=== PATIENT | male | born 2005 | race Two or more races ===

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

== ENCOUNTER 2025-01-09 15:08 | Outpatient (AMB) | payer MEDICAID, SELFPAY ==
[2025-01-09 15:36] VITALS: BP 153/82; PULSE 69; RESP 17; TEMP 36.8; O2SAT 98; BMI 20.1
--- NOTE | 2025-01-09 15:36 | PD.RESCLINIC ---
Vital Signs 01/09/25 15:36 Height 1.85 m Height Method Measured Weight 68.946 kg Weight Measurement Method Standing Scale BMI 20.1 BP 153/82 H Blood Pressure Source Automatic Cuff Blood Pressure Location Right Upper Arm Position Sitting Respiration 17 Pulse 69 Pulse Source Monitor Temp 98.3 F Temp Source Temporal Artery Scan Pulse Oximetry (%) 98 Oxygen Delivery Method Room Air Allergies/Meds Allergies & Medications Allergies No Known Allergies Allergy (Verified 01/09/25 15:37) Medication Reconciliation metoclopramide HCl 10 mg tablet (Reglan) 10 mg PO Q6H PRN nausea and vomiting #30 tabs 09/02/24 [Rx Confirmed 01/09/25] famotidine 20 mg tablet (Pepcid) 20 mg PO QDAY PRN reflux #14 tabs 11/08/24 [Rx Confirmed 01/09/25] propranolol 10 mg tablet 10 mg PO BID #60 tabs 11/08/24 [Rx Confirmed 01/09/25] tamsulosin 0.4 mg capsule (Flomax) 0.4 mg PO QDAY #10 caps 11/08/24 [Rx Confirmed 01/09/25] escitalopram oxalate 20 mg tablet (Lexapro) 20 mg PO QDAY #30 tabs 11/25/24 [Rx Confirmed 01/09/25] alprazolam 1 mg tablet 1 mg PO TID PRN anxiety 1 week #21 tabs 01/09/25 [Rx Confirmed 01/09/25] MA Intake Visit Data Collection New Patient or Established: Established Patient (seen at [facility] within 3 years) Seen by Clinical Staff ONLY (RN/MA): No Pain Present Currently: No Pain scale:: 0 Pain Scale Used: Peguero-Medellin/Numerical Billing Collections Specialist Required: No PCP or OBGYN visit in last 3 months: Yes Date of Last PCP or OBGYN visit: 12/19/24 Hx Now: No Do You Feel Safe at Home: Yes Authorities Contacted: N/A Smoking Status Smoking Status: Never smoker Immunization / Flu Flu Vaccine in the Last 12 Months: No Flu Vaccine Exclusion Criteria: No Exclusion Criteria Past Medical History Past Medical History CARDIAC: Negative Congestive Heart Failure RESPIRATORY: Negative Chronic Obstructive Pulmonary Disease (COPD) GENITOURINARY: Negative Renal Disease ENDOCRINE: Negative Diabetes Mellitus Type 1 or Diabetes Mellitus Type 2 PSYCHO/SOCIAL: Positive Recreational Drug Use and Anxiety Social History SMOKING STATUS: Smoking status: Never smoker ALCOHOL: Alcohol Intake: Never Patient Portal Questionaires PHQ-9 PHQ-2 Over the last 2 weeks, how often have you been bothered by any of the following problems? 1. Little interest or pleasure in doing things: not at all PHQ-9 8. Moving or speaking so slowly that other people could have noticed? - Or the opposite - being so fidgety or restless that you have been moving around a lot more than usual: nearly every day Source: Developed by Drs. Guzman Blankenship, Rebekah Bueno, Tyrone Tracy and colleagues, with an educational blanche from [employer]. Social History Living Situation History Lives With: Family Tobacco History Smoking Status: Never smoker Alcohol History Alcohol Intake: Never Domestic Abuse History Do You Feel Safe at Home: Yes Review of Systems Report any current symptoms Only answer those that you have currently: Past Medical History Past Medical History Have you ever been diagnosed with any of the following: Cardiology Problems Congestive Heart Failure: No Respiratory Problems Chronic Obstructive Pulmonary Disease (COPD): No Genital/Urinary Problems Renal Disease: No Endocrine Problems Diabetes Mellitus Type 1: No Diabetes Mellitus Type 2: No Psychologic Problems Recreational Drug Use: Yes Anxiety: Yes History of Present Illness HPI Narrative Alfred Bustamante is a 19-year-old male with a past medical history of generalized anxiety disorder, panic attacks, and history of substance use (cocaine, alcohol, THC, benzodiazepines) who presents to the [facility] for medication refill. He reports he was off Xanax for several day and feels withdrawal. He reports palpitations, tachycardia, diaphoresis, anxiety. He was recently [place] and was getting his Xan[place] there. He reports he is trying to reduce the dose but it is very hard for him. He was referred to psychiatry before and was encouraged to follow up on that. He denies any other substances use or selling his Xanax to other people. He previously reported he was bying it on streets but now is having financial difficulties and cannot afford it. Review of Systems Review of Systems Systems Reviewed: All systems reviewed, normal except as documented Objective/Exam Narrative Physical exam: Gen: Well-developed and well-nourished. HEENT: NCAT, PERRLA, EOMI, MMM, anicteric conjunctivae. CVS: normal S1 and S2. RRR. No M/R/G. Resp: CTA B/L. No rhonchi, rales, crackles or wheezing. Abd: soft, non-tender, non-distended. BS+ in all 4 quadrants. MSK: Good ROM in BUE & BLE. No edema or rash. Neuro: CN II-XII grossly intact. Strength 5/5 in BUE & BLE. Alert and oriented x3. Psych: appropriate mood and affect. Assessment & Plan Diagnosis / Problem List (1) Generalized anxiety disorder: Status: Acute Assessment & Plan: Patient has had improved symptoms with Lexapro, recently increased to 20 mg daily, however still gets panniock attacks and severe withdrawals from Xanax. Recently ran out of Xanax several days ago and requesting refill. Was referred to psychiatry and was encouraged to follow up. Plan: ? Continue Lexapro 20 mg daily. ? Xanax 1 mg TID as needed for 1 week. ? Encouraged patient to wean down to 2.5 mg of total daily dose (1 mg twice daily, 0.5 mg once daily). ? Can time 0.5 mg dosage for when patient feels the least anxious (morning, noon, vs evening). ? Encouraged to follow up with psychiatry referral. ? Follow-up in two weeks. (2) Substance abuse: Status: Acute Assessment & Plan: Concern for addiction to Xanax, patient showing signs of withdrawal. Plan: ? Counseled patient on Xanax use, explained risks of dependence and side effects, patient aware, attempting to reduce dose. ? Encouraged patient to work on reducing use of Xanax. ? Encouraged to follow up with psychiatry referral. Additional Assessment Internal Medicine Attending Note: Case discussed with and agree with note and management plan of Resident Physician as per Resident's Note above. Issues of concern for present visit are as follows: Follow-up visit. Patient still getting panic attacks, severe anxiety. Ran out of Xanax several days previously. Concern for withdrawal. We will resume the patient on Xanax at 1 mg 3 times daily and work to slowly wean this. Needs to follow-up with psychiatry. Continue Lexapro. Of note, since the patient's last visit, he was briefly incarcerated, but apparently charges have been dropped. Sumanth Stiles MD Additional Plan Plan of care discussed with attending Dr. Stiles. Barry Gottlieb MD, PGY 2. Disclaimer: This note was dictated by speech recognition. Minor errors in scrap wheeler may be present due to voice recognition software. Physician Billing Established Patient Established Patient: E/M Level 3-CPT 73598 Office Procedures [facility] Level of Care Nursing/Assessment Patient Status: Established Patient Nursing Assessment/Reassessment: Medication Reconciliation, Update PMH in EMR and Vital Signs Coordination of Care: Complex Care and Chronic Disease 1-5, Education Complex Pt/Fam and Consent,records obtained, informed consent Established Patient Charge Established Patient Point Assignment: 80 Established Patient Point Charge: Level 3 (80-115)
== END 2025-01-09 16:07 | disposition home or self-care (01) ==
LOC: HODAHC 15:08
PROVIDERS: Supervising Provider Internal Medicine; Visit Provider Student in an Organized Health Care Education/Training Program
DX: F41.1 Generalized anxiety disorder (principal); F13.139 Sedative, hypnotic or anxiolytic abuse with withdrawal, unspecified
CPT/HCPCS: 99213; G0463

== ENCOUNTER 2025-01-20 13:06 | Outpatient (AMB) | payer MEDICAID, SELFPAY ==
--- NOTE | 2025-01-20 14:14 | PD.RESCLINIC ---
Allergies/Meds Allergies & Medications Allergies No Known Allergies Allergy (Verified 01/09/25 15:37) MA Intake Visit Data Collection PCP or OBGYN visit in last 3 months: Yes Smoking Status Smoking Status: Never smoker Immunization / Flu Flu Vaccine in the Last 12 Months: Yes Flu Vaccine Exclusion Criteria: No Exclusion Criteria Past Medical History Past Medical History CARDIAC: Negative Congestive Heart Failure RESPIRATORY: Negative Chronic Obstructive Pulmonary Disease (COPD) GENITOURINARY: Negative Renal Disease ENDOCRINE: Negative Diabetes Mellitus Type 1 or Diabetes Mellitus Type 2 PSYCHO/SOCIAL: Positive Recreational Drug Use and Anxiety Social History SMOKING STATUS: Smoking status: Never smoker ALCOHOL: Alcohol Intake: Never Patient Portal Questionaires PHQ-9 PHQ-2 Over the last 2 weeks, how often have you been bothered by any of the following problems? 1. Little interest or pleasure in doing things: not at all PHQ-9 8. Moving or speaking so slowly that other people could have noticed? - Or the opposite - being so fidgety or restless that you have been moving around a lot more than usual: nearly every day Source: Developed by Drs. Guzman Blankenship, Rebekah Bueno, Tyrone Tracy and colleagues, with an educational blanche from [facility]. Social History Living Situation History Lives With: Family Tobacco History Smoking Status: Never smoker Alcohol History Alcohol Intake: Never Review of Systems Report any current symptoms Only answer those that you have currently: Past Medical History Past Medical History Have you ever been diagnosed with any of the following: Cardiology Problems Congestive Heart Failure: No Respiratory Problems Chronic Obstructive Pulmonary Disease (COPD): No Genital/Urinary Problems Renal Disease: No Endocrine Problems Diabetes Mellitus Type 1: No Diabetes Mellitus Type 2: No Psychologic Problems Recreational Drug Use: Yes Anxiety: Yes History of Present Illness HPI Narrative Alfred Bustamante is a 19-year-old male with a past medical history of generalized anxiety disorder, panic attacks, and history of substance use (cocaine, alcohol, THC, benzodiazepines) who presents to the [facility] for medication refill. He reports he was off Xanax for several day because he was given refill for only 1 week and he could not present on 16 of January for follow up appointment. He reported that he feels like getting withdrawal. He reports palpitations, tachycardia, diaphoresis, anxiety and tremors. He reported having tele psychiatrist visit about 6 months ago and was told that he no longer needs to see them. He was recommended to call his insurance for in person psychiatrist visit. Review of Systems Review of Systems Systems Reviewed: All systems reviewed, normal except as documented Objective/Exam Narrative Physical exam: Gen: Well-developed and well-nourished. HEENT: NCAT, PERRLA, EOMI, MMM, anicteric conjunctivae. CVS: normal S1 and S2. RRR. No M/R/G. Resp: CTA B/L. No rhonchi, rales, crackles or wheezing. Abd: soft, non-tender, non-distended. BS+ in all 4 quadrants. MSK: Good ROM in BUE & BLE. No edema or rash, mild tremors on UE. Neuro: CN II-XII grossly intact. Strength 5/5 in BUE & BLE. Alert and oriented x3. Psych: Mildly anxious. Assessment & Plan Diagnosis / Problem List (1) Generalized anxiety disorder: Status: Acute Assessment & Plan: Patient has had improved symptoms with Lexapro, currently on 20mg daily, however still gets panic attacks and severe withdrawals from Xanax. Recently ran out of Xanax several days ago and requesting refill. Was referred to psychiatry and was encouraged to follow up, by calling to insurance provider. Plan: ? Continue Lexapro 20 mg daily. ? Xanax 1 mg TID as needed for 2 week. ? Encouraged patient to wean down to 2.5 mg of total daily dose (1 mg twice daily, 0.5 mg once daily). ? Can time 0.5 mg dosage for when patient feels the least anxious (morning, noon, vs evening). ? Encouraged to follow up with psychiatry referral, and call the insurance and request in person visit. ? Follow-up in two weeks. (2) Substance abuse: Status: Acute Assessment & Plan: Concern for addiction to Xanax, patient showing signs of withdrawal, with agitation and UE tremors. Plan: ? Counseled patient on Xanax use, explained risks of dependence and side effects, patient aware, attempting to reduce dose, has gone down to 1 mg TID PRN from total of 4 mg daily. ? Encouraged patient to work on reducing use of Xanax. ? Encouraged to follow up with psychiatry referral. - Encouraged to involve more with family and friends who really cares for him The case was discussed with my attending MD Arsalan Robles MD PGY3 Additional Assessment Attending note: I, Sumanth Stiles MD, attest that I was physically present for the sims portions of the service and evaluated the patient with the resident and I reviewed and discussed the case with the resident and agree with the resident's findings and plans of care as documented above. Sumanth Stiles MD Physician Billing Established Patient Established Patient: E/M Level 3-CPT 08712
== END 2025-01-20 14:38 | disposition home or self-care (01) ==
LOC: HODAHC 13:06
PROVIDERS: Supervising Provider Internal Medicine; Visit Provider Student in an Organized Health Care Education/Training Program
DX: F41.1 Generalized anxiety disorder (principal); F13.10 Sedative, hypnotic or anxiolytic abuse, uncomplicated
CPT/HCPCS: 99213; G0463

== ENCOUNTER 2025-02-05 15:37 | Outpatient (AMB) | payer MEDICAID, SELFPAY ==
[2025-02-05 15:51] VITALS: BP 148/96; PULSE 69; RESP 18; TEMP 36.8; O2SAT 98; BMI 21.7
--- NOTE | 2025-02-05 15:51 | PD.RESCLINIC ---
Vital Signs 02/05/25 15:51 Height 1.85 m Height Method Stated Weight 74.559 kg Weight Measurement Method Standing Scale BMI 21.7 BP 148/96 H Blood Pressure Source Automatic Cuff Blood Pressure Location Right Upper Arm Position Sitting Respiration 18 Pulse 69 Pulse Source Monitor Temp 98.2 F Temp Source Temporal Artery Scan Pulse Oximetry (%) 98 Oxygen Delivery Method Room Air Allergies/Meds Allergies & Medications Allergies No Known Allergies Allergy (Verified 02/05/25 15:52) Medication Reconciliation metoclopramide HCl 10 mg tablet (Reglan) 10 mg PO Q6H PRN nausea and vomiting #30 tabs 09/02/24 [Rx Confirmed 02/05/25] famotidine 20 mg tablet (Pepcid) 20 mg PO QDAY PRN reflux #14 tabs 11/08/24 [Rx Confirmed 02/05/25] propranolol 10 mg tablet 10 mg PO BID #60 tabs 11/08/24 [Rx Confirmed 02/05/25] tamsulosin 0.4 mg capsule (Flomax) 0.4 mg PO QDAY #10 caps 11/08/24 [Rx Confirmed 02/05/25] escitalopram oxalate 20 mg tablet (Lexapro) 20 mg PO QDAY #30 tabs 11/25/24 [Rx Confirmed 02/05/25] alprazolam 0.5 mg tablet 0.5 mg PO TID anxiety or panic episode 2 weeks #50 tabs 02/05/25 [Rx] MA Intake Visit Data Collection New Patient or Established: Established Patient (seen at [facility] within 3 years) Seen by Clinical Staff ONLY (RN/MA): No Pain Present Currently: No Pain scale:: 0 Pain Scale Used: [employer]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 Required: No PCP or OBGYN visit in last 3 months: No Hx Now: No Do You Feel Safe at Home: Yes Authorities Contacted: N/A Smoking Status Smoking Status: Never smoker Immunization / Flu Flu Vaccine in the Last 12 Months: No Flu Vaccine Exclusion Criteria: No Exclusion Criteria Past Medical History Past Medical History CARDIAC: Negative Congestive Heart Failure RESPIRATORY: Negative Chronic Obstructive Pulmonary Disease (COPD) GENITOURINARY: Negative Renal Disease ENDOCRINE: Negative Diabetes Mellitus Type 1 or Diabetes Mellitus Type 2 PSYCHO/SOCIAL: Positive Recreational Drug Use and Anxiety Social History SMOKING STATUS: Smoking status: Never smoker ALCOHOL: Alcohol Intake: Never Patient Portal Questionaires PHQ-9 PHQ-2 Over the last 2 weeks, how often have you been bothered by any of the following problems? 1. Little interest or pleasure in doing things: not at all PHQ-9 8. Moving or speaking so slowly that other people could have noticed? - Or the opposite - being so fidgety or restless that you have been moving around a lot more than usual: nearly every day Source: Developed by Drs. Guzman Blankenship, Rebekah Bueno, Tyrone Tracy and colleagues, with an educational blanche from [employer]. Social History Living Situation History Lives With: Family Tobacco History Smoking Status: Never smoker Alcohol History Alcohol Intake: Never Domestic Abuse History Do You Feel Safe at Home: Yes Review of Systems Report any current symptoms Only answer those that you have currently: Past Medical History Past Medical History Have you ever been diagnosed with any of the following: Cardiology Problems Congestive Heart Failure: No Respiratory Problems Chronic Obstructive Pulmonary Disease (COPD): No Genital/Urinary Problems Renal Disease: No Endocrine Problems Diabetes Mellitus Type 1: No Diabetes Mellitus Type 2: No Psychologic Problems Recreational Drug Use: Yes Anxiety: Yes History of Present Illness HPI Narrative Alfred Bustamante is a 19-year-old male with a past medical history of generalized anxiety disorder, panic attacks, and history of substance use (cocaine, alcohol, THC, benzodiazepines) who presents to the [facility] for benzodiazepine medication refill. Patient was off Xanax for 3 days because he had difficulty getting a ride to clinic and does not have a license or car. He reported that he feels like he has been getting withdrawal symptoms including tremors and anxiety-induced abdominal pain. He reported having tele psychiatrist visit about 6 months ago and was told that he no longer needs to see them. He was recommended to visit the walk-in clinic in [place] but transportation has been an issue for him. Patient was recently in custodial for 3 weeks and states that Objective/Exam Narrative Physical exam: Physical Exam General: Awake and in no acute distress. Conversational and non-toxic appearing. HEENT: Normocephalic, atraumatic, mucous membranes moist. Heart: Regular rate and rhythm, normal S1 and S2, no murmurs. Lungs: Clear to auscultation with no wheezing or crackles. Abdomen: Soft, nondistended, nontender, positive bowel sounds. ?No guarding or rebound tenderness. Neurologic: Alert and oriented x3, no gross neurological deficit, and patient able to move all 4 extremities. Extremities: No edema. Skin: No rash or ecchymoses. Assessment & Plan Diagnosis / Problem List (1) Generalized anxiety disorder: Status: Acute (2) Panic attack: Status: Acute Office Procedures [facility] Level of Care Nursing/Assessment Patient Status: Established Patient Nursing Assessment/Reassessment: Medication Reconciliation, Update PMH in EMR and Vital Signs Coordination of Care: Complex Care and Chronic Disease 1-5, Consent,records obtained, informed consent, Education Simp Pt/Fam and Staff clarify orders Established Patient Charge Established Patient Point Assignment: 85 Established Patient Point Charge: Level 3 (80-115)
== END 2025-02-05 16:36 | disposition home or self-care (01) ==
PROVIDERS: PCP Student in an Organized Health Care Education/Training Program; Referring Provider Student in an Organized Health Care Education/Training Program; Supervising Provider Internal Medicine; Visit Provider Student in an Organized Health Care Education/Training Program
DX: F41.1 Generalized anxiety disorder (principal); F41.0 Panic disorder [episodic paroxysmal anxiety]; Z76.0 Encounter for issue of repeat prescription
CPT/HCPCS: 99213; G0463

== ENCOUNTER 2025-02-17 09:48 | Outpatient (AMB) | payer MEDICAID, SELFPAY ==
--- NOTE | 2025-02-17 10:01 | ACNOTE_ITS ---
Vital Signs 02/17/25 10:02 Height 1.85 m Height Method Stated Weight 81.703 kg Weight Measurement Method Standing Scale BMI 23.8 BP 156/101 H Blood Pressure Source Automatic Cuff Blood Pressure Location Right Upper Arm Position Sitting Respiration 19 Pulse 66 Pulse Source Monitor Temp 98.1 F Temp Source Temporal Artery Scan Pulse Oximetry (%) 98 Oxygen Delivery Method Room Air Allergies/Meds Allergies & Medications Allergies No Known Allergies Allergy (Verified 02/05/25 15:52) MA Intake Visit Data Collection New Patient or Established: Established Patient (seen at [facility] within 3 years) Seen by Clinical Staff ONLY (RN/MA): No Reason for Visit:: FOLLOW UP ANXIETY Pain Present Currently: No Flower Grower Required: No PCP or OBGYN visit in last 3 months: Yes Date of Last PCP or OBGYN visit: 01/09/25 Hx Now: No Do You Feel Safe at Home: Yes Authorities Contacted: N/A Smoking Status Smoking Status: Never smoker Immunization / Flu Flu Vaccine in the Last 12 Months: No Flu Vaccine Exclusion Criteria: Refused by Patient Past Medical History Past Medical History CARDIAC: Negative Congestive Heart Failure RESPIRATORY: Negative Chronic Obstructive Pulmonary Disease (COPD) GENITOURINARY: Negative Renal Disease ENDOCRINE: Negative Diabetes Mellitus Type 1 or Diabetes Mellitus Type 2 PSYCHO/SOCIAL: Positive Recreational Drug Use and Anxiety Social History SMOKING STATUS: Smoking status: Never smoker ALCOHOL: Alcohol Intake: Never Patient Portal Questionaires PHQ-9 PHQ-2 Over the last 2 weeks, how often have you been bothered by any of the following problems? 1. Little interest or pleasure in doing things: not at all PHQ-9 8. Moving or speaking so slowly that other people could have noticed? - Or the opposite - being so fidgety or restless that you have been moving around a lot more than usual: nearly every day Source: Developed by Drs. Guzman Blankenship, Rebekah Bueno, Tyrone Tracy and colleagues, with an educational blanche from [employer]. Social History Living Situation History Lives With: Family Tobacco History Smoking Status: Never smoker Alcohol History Alcohol Intake: Never Domestic Abuse History Do You Feel Safe at Home: Yes Review of Systems Report any current symptoms Only answer those that you have currently: Past Medical History Past Medical History Have you ever been diagnosed with any of the following: Cardiology Problems Congestive Heart Failure: No Respiratory Problems Chronic Obstructive Pulmonary Disease (COPD): No Genital/Urinary Problems Renal Disease: No Endocrine Problems Diabetes Mellitus Type 1: No Diabetes Mellitus Type 2: No Psychologic Problems Recreational Drug Use: Yes Anxiety: Yes History of Present Illness HPI Narrative Alfred Bustamante is a 20-year-old male with a past medical history of generalized anxiety disorder, panic attacks, and history of substance use (cocaine, alcohol, THC, benzodiazepines) who presents to the [facility] for benzodiazepine medication refill. Patient was off Xanax for 3 days because the dose was not sufficient for him and he had to take more then 3 tablets a day. He reported he ran out of prescribed Xanax 1 week ago and had to buy extra from streets. He also took some Xanax from his grandmother. He is followed by psychiatry and reports it helps him somewhat. He continue to take Lexapro and propranolol. Review of Systems Review of Systems Systems Reviewed: All systems reviewed, normal except as documented Objective/Exam Narrative Physical exam: Gen: Well-developed and well-nourished. HEENT: NCAT, PERRLA, EOMI, MMM, anicteric conjunctivae. CVS: normal S1 and S2. RRR. No M/R/G. Resp: CTA B/L. No rhonchi, rales, crackles or wheezing. Abd: soft, non-tender, non-distended. BS+ in all 4 quadrants. MSK: Good ROM in BUE & BLE. No edema or rash. Neuro: CN II-XII grossly intact. Strength 5/5 in BUE & BLE. Alert and oriented x3. Psych: appropriate mood and affect. Assessment & Plan Diagnosis / Problem List (1) Generalized anxiety disorder: Status: Acute Assessment & Plan: Patient reported he continues to take Xanax but the dose 0.5 mg was not sufficient for him so he had to take more then 3 tabs a day. He continues to take Lexapro and propranolol. He is followed by psychiatry. Plan: - Continue Lexapro 20 mg daily and propranolol. - Xanax was increased back to 1 mg TID as needed for 2 weeks. - Can time 0.5 mg dosage for when patient feels the least anxious (morning, noon, vs evening). ? Encouraged to follow up with psychiatry. ? Follow-up in two weeks. (2) Substance abuse: Status: Acute Assessment & Plan: Concern for addiction to Xanax, patient showing signs of withdrawal. Plan: ? Counseled patient on Xanax use, explained risks of dependence and side effects, patient aware, attempting to reduce dose. ? Encouraged patient to work on reducing use of Xanax. ? Encouraged to follow up with psychiatry referral. Plan Plan of care discussed with attending Dr. Stiles. Barry Gottlieb MD, PGY 3. Disclaimer: This note was dictated by speech recognition. Minor errors in cyber incident handler may be present due to voice recognition software. Additional Assessment Internal Medicine Attending Note: Case discussed with and agree with note and management plan of Resident Physician as per Resident's Note above. Issues of concern for present visit are as follows: Follow-up visit. Patient still getting panic attacks, severe anxiety. Ran out of Xanax several days previously. Concern for withdrawal. We will resume the patient on Xanax at 1 mg 3 times daily and work to slowly wean this. Needs to follow-up with psychiatry. Continue Lexapro. Of note, since the patient's last visit, he was briefly incarcerated, but apparently charges have been dropped. Sumanth Stiles MD Additional Plan Plan of care discussed with attending Dr. Stiles. Barry Gottlieb MD, PGY 2. Disclaimer: This note was dictated by speech recognition. Minor errors in cyber incident handler may be present due to voice recognition software. Office Procedures [facility] Level of Care Nursing/Assessment Patient Status: Established Patient Nursing Assessment/Reassessment: Medication Reconciliation, Update PMH in EMR and Vital Signs Coordination of Care: Complex Care and Chronic Disease 1-5, Consent,records obtained, informed consent, Lab and Imaging orders and Results/Orders obtained Established Patient Charge Established Patient Point Assignment: 80 Established Patient Point Charge: EP Level 3 (80-115)
[2025-02-17 10:02] VITALS: BP 156/101; PULSE 66; RESP 19; TEMP 36.7; O2SAT 98; BMI 23.8
== END 2025-02-17 11:09 | disposition home or self-care (01) ==
LOC: HODAHC 09:48
PROVIDERS: Supervising Provider Internal Medicine
DX: F41.1 Generalized anxiety disorder (principal); F19.10 Other psychoactive substance abuse, uncomplicated; Z71.51 Drug abuse counseling and surveillance of drug abuser
CPT/HCPCS: 99213; G0463

== ENCOUNTER 2025-03-01 15:30 | Emergency (ER) | payer MEDICAID, SELFPAY ==
[2025-03-01 15:47] VITALS: BP 153/92; PULSE 113; RESP 20; TEMP 36.7; O2SAT 97; BMI 24.7
--- NOTE | 2025-03-01 16:25 | EDNOTE_ITS ---
<Statement entered by Faith Morales MD - 03/17/25 06:23> As co-signing physician, I was present and available for consult prn. I concur with the plan and care as documented by the midlevel provider. ED Anxiety RME/HPI General Chief Complaint: General Adult/Misc Complain Stated Complaint: ran out of Xanax, anxiety Time Seen by Provider: 03/01/25 15:43 Arrival date/time: 03/01/25 15:30 This is a 20 year old male with complaints of running out of his Xanax. Patient states that he has a prescription that was filled on February 17 to take Xanax 3 times a day. Patient states that he was taking 4 Xanax a day. Patient reports that his dosage used to be 2 mg 3 times a day and they are decreasing him to 1 mg 3 times a day. Patient reports that he gets a new prescription on Monday, March 03. Patient requesting a dose of Xanax today. Related Data Previous Rx's ?Medication ?Instructions ?Recorded metoclopramide HCl 10 mg tablet 10 mg PO Q6H PRN nause a and 09/02/24 (Reglan) vomiting #30 tabs famotidine 20 mg tablet (Pepcid) 20 mg PO QDAY PRN ref lux #14 tabs 11/08/24 tamsulosin 0.4 mg capsule (Flomax) 0.4 mg PO QDAY #10 caps 11/08/24 escitalopram oxalate 20 mg tablet 20 mg PO QDAY #30 ta bs 02/17/25 (Lexapro) propranolol 10 mg tablet 10 mg PO BID #60 tabs alprazolam 1 mg tablet 1 mg PO TID PRN anxiety #50 tabs 03/03/25 Allergies Allergy/AdvReac Type Severity Reaction Status Date / Time No Known Allergies Allergy Verified 03/16/25 11:37 Review of Systems Review of Systems Systems Reviewed: All systems reviewed, normal except as documented Past Medical History Past Medical History CARDIAC: Negative Congestive Heart Failure RESPIRATORY: Negative Chronic Obstructive Pulmonary Disease (COPD) GENITOURINARY: Negative Renal Disease ENDOCRINE: Negative Diabetes Mellitus Type 1 or Diabetes Mellitus Type 2 PSYCHO/SOCIAL: Positive Recreational Drug Use and Anxiety Social History SMOKING STATUS: Never smoker SUBSTANCE USE: marijuana and hallucinogens ED Exam Narrative Physical exam: VITAL SIGNS: Reviewed. GENERAL APPEARANCE: Alert and interactive, follows commands, no acute distress HEAD AND FACE: Non-traumatic. ENT: PERRL, conjuctiva pink and clear, eyelid no trauma, Mucous membrane moist. NECK: Supple, nontender, no nuchal rigidity. CHEST: No tenderness, no crepitus, no paradoxical movement, no retractions. LUNGS: breathing even and unlabored HEART: Regular rate, cap refill less than 2 seconds ABDOMEN: Soft, nondistended, no guarding, nontender NEUROLOGICAL: Gross motor function intact sensory function intact, Appropriate for age. MUSCULOSKELETAL: low back nontender, full range of motion. EXTREMITIES: No redness no swelling no skin breakdown on bilateral foot and leg. Distal neurovascular status intact bilateral foot SKIN: Color pink, dry, no rash, no lacerations, no abrasions, no contusions. Course Quality Measures none Orders Category Date Time Status ALPRazoLAM [Xanax] Med 03/01/25 16:21 Discontinued 1 mg PO X1 ONE Vital Signs Vital signs: Vital Signs Temperature 98.0 F 03/01/25 15:47 Pulse Rate 113 H 03/01/25 15:47 Respiratory Rate 20 03/01/25 15:47 Blood Pressure 153/92 H 03/01/25 15:47 Pulse Oximetry (%) 97 03/01/25 15:47 Anxiety MDM Narrative MDM Narrative: spoke to patient at length. Patient given a dose of Xanax here. Patient told to follow-up with primary provider in 1 to 2 days. come back to the emergency room symptoms change or worsen. Drag patient told that we do not dispense any more Xanax and he is okay with that but we did give him a dose here. On dictation: Although this document has been carefully reviewed, there may still be some phonetic and other typographical errors. These errors are purely grammatical due to imperfections in the software program and should not be construed in any way to compromise the substance of the patient's medical care during this visit. Patient data External records reviewed:: [facility] previous records Clinical information provided by:: patient Social determinants that could affect healthcare access:: none Patient has the following chronic illnesses:: none How is presenting disease/condition affected by chronic disease/condition?: no chronic disease Evaluation data The following diagnostics were reviewed and interpreted by me:: other (specify) (none) Lab and/or radiology exams considered but not ordered:: none Interpretation Summary: see note Medications / Prescriptions Medications or Prescriptions considered but not ordered:: none Medication administrations:: Medication Administration History Discontinued Medications Alprazolam (Alprazolam 0.25 Mg Tablet) 1 mg PO X1 ONE Stop: 03/01/25 16:22 Consultations Consultation(s) initiated? (list below): No Diagnosis Most likely diagnosis given after review of the tests above:: anxiety Admission Indicated Admission indicated?: not indicated Admission Request Was there a request for admission?: No Disposition Plan Disposition Plan: Discharge Discharge Attestation Discharge Attestation: The patient and all family members were given an opportunity to ask questions and understood the discharge instructions. Discharge instructions specifically effects, indications for sooner follow up or return to the emergency department, and the expected course of current diagnosis. Patient condition: Stable Discharge Plan Plan Patient Disposition: HOME (Self Care) Patient condition on transfer: Stable Prescriptions/Referrals Prescriptions/Med Rec: No Action propranolol 10 mg tablet 10 mg PO BID Qty: 60 1RF escitalopram oxalate [Lexapro] 20 mg tablet 20 mg PO QDAY Qty: 30 2RF alprazolam 1 mg tablet 1 mg PO TID PRN (Reason: anxiety) Qty: 50 0RF tamsulosin [Flomax] 0.4 mg capsule 0.4 mg PO QDAY Qty: 10 0RF famotidine [Pepcid] 20 mg tablet 20 mg PO QDAY PRN (Reason: reflux) Qty: 14 0RF metoclopramide HCl [Reglan] 10 mg tablet 10 mg PO Q6H PRN (Reason: nausea and vomiting) Qty: 30 0RF Referrals: No Primary/Family,Physician [Referring Provider] - In 1 week Problem List Clinical Impression: Anxiety Patient/Caregiver Discharge Instructions Discharge Activity: activity as tolerated Education Materials: ED Anxiety Reaction Additional Instructions: Follow up with primary provider in 1-2 days. Come back to ED if symptoms change or worsen Print Language: Swedish Stand Alone Forms: Enriqueta Award Info., Patient Portal Info Letter PA/EDE Supervising Physician SHRUTI/EDE Supervising Physician: shane
== END 2025-03-01 18:00 | disposition home or self-care (01) ==
PROVIDERS: Emergency Provider Emergency Medicine; PCP Nurse Practitioner Family
DX: F41.9 Anxiety disorder, unspecified (principal)
CPT/HCPCS: 99282; A9270

== ENCOUNTER 2025-03-03 11:36 | Outpatient (AMB) | payer MEDICAID, SELFPAY ==
[2025-03-03 11:42] VITALS: BP 148/99; PULSE 75; RESP 21; TEMP 36.6; O2SAT 97; BMI 22.9
--- NOTE | 2025-03-03 11:42 | ACNOTE_ITS ---
Vital Signs 03/03/25 11:42 Height 1.85 m Height Method Stated Weight 78.471 kg Weight Measurement Method Standing Scale BMI 22.9 BP 148/99 H Blood Pressure Source Automatic Cuff Blood Pressure Location Right Upper Arm Position Sitting Respiration 21 H Pulse 75 Pulse Source Monitor Temp 97.9 F Temp Source Temporal Artery Scan Pulse Oximetry (%) 97 Oxygen Delivery Method Room Air Allergies/Meds Allergies & Medications Allergies No Known Allergies Allergy (Verified 03/01/25 15:35) MA Intake Visit Data Collection New Patient or Established: Established Patient (seen at [facility] within 3 years) Seen by Clinical Staff ONLY (RN/MA): No Reason for Visit:: REFILL MEDICATION Pain Present Currently: No Sealer Dry Cell Required: No PCP or OBGYN visit in last 3 months: No Do You Feel Safe at Home: Yes Authorities Contacted: N/A Smoking Status Smoking Status: Current every day smoker Cessation Counseling Provided: GRIS was advised that quitting smoking is the single most important factor to protect the health of themselves and their family. Discussed the benefits of quitting smoking with patient. Encouraged patient to quit smoking and provided Cessation assistance materials and resources. Tobacco Use: Cigarette Years smoked: 1 Are you interested in quitting?: No Immunization / Flu Flu Vaccine in the Last 12 Months: No Flu Vaccine Exclusion Criteria: No Exclusion Criteria Past Medical History Past Medical History CARDIAC: Negative Congestive Heart Failure RESPIRATORY: Negative Chronic Obstructive Pulmonary Disease (COPD) GENITOURINARY: Negative Renal Disease ENDOCRINE: Negative Diabetes Mellitus Type 1 or Diabetes Mellitus Type 2 PSYCHO/SOCIAL: Positive Recreational Drug Use and Anxiety Social History SMOKING STATUS: Smoking status: Current every day smoker ALCOHOL: Alcohol Intake: Never Patient Portal Questionaires PHQ-9 PHQ-2 Over the last 2 weeks, how often have you been bothered by any of the following problems? 1. Little interest or pleasure in doing things: not at all PHQ-9 8. Moving or speaking so slowly that other people could have noticed? - Or the opposite - being so fidgety or restless that you have been moving around a lot more than usual: nearly every day Source: Developed by Drs. Guzman Blankenship, Rebekah Bueno, Tyrone Tracy and colleagues, with an educational blanche from [employer]. Social History Living Situation History Lives With: Family Tobacco History Smoking Status: Current every day smoker Alcohol History Alcohol Intake: Never Domestic Abuse History Do You Feel Safe at Home: Yes Review of Systems Report any current symptoms Only answer those that you have currently: Past Medical History Past Medical History Have you ever been diagnosed with any of the following: Cardiology Problems Congestive Heart Failure: No Respiratory Problems Chronic Obstructive Pulmonary Disease (COPD): No Genital/Urinary Problems Renal Disease: No Endocrine Problems Diabetes Mellitus Type 1: No Diabetes Mellitus Type 2: No Psychologic Problems Recreational Drug Use: Yes Anxiety: Yes History of Present Illness HPI Narrative Gris Bustamante is a 20-year-old male with a past medical history of generalized anxiety disorder, panic attacks, and history of substance use (cocaine, alcohol, THC, benzodiazepines) who presents to the [facility] for benzod iazepine medication refill. Patient recently seeked treatment at [facility] ED on 03/01 due to a panic attack. He feels like he is getting better, patient had a few extra pills of his Xanax upon this refill. The patient stated that he feels like he is more able to calm himself down during panic attacks now, but still needs his Xanax. Patient plans to see psychiatrist in [place] for further management of LUDIVINA with panic attacks. Patient hopes to decrease his Xanax use over time. Patient feels clamy and has abdominal pain, which he states is associated with not taking his Xanax for a while. Review of Systems Review of Systems Systems Reviewed: All systems reviewed, normal except as documented Objective/Exam Narrative Physical exam: Physical Exam: General: Alert, no acute distress. Skin: Warm, dry, intact, no obvious rash. Head: Normocephalic, atraumatic. Eye: Normal conjunctiva, PERRL. Cardiovascular: Regular rate and rhythm, no murmur, +S1/S2. Respiratory: Lungs are clear to auscultation, respirations unlabored, no crackles, no wheezing. Gastrointestinal: Soft, slight tenderness to palpation of LUQ, non-distended. No guarding or rebound tenderness. Extremities: No edema, no cyanosis, no clubbing. Neuro: No focal deficits observed. Conversant, moving all extremities. No overt cerebellar signs/incoordination. Psychiatric: Cooperative, appropriate affect. Assessment & Plan Diagnosis / Problem List (1) Generalized anxiety disorder: Status: Acute Assessment & Plan: Patient reported he continues to take Xanax but the dose 0.5 mg was not sufficient for him so he had to take more then 3 tabs a day. He continues to take Lexapro and propranolol. He is followed by psychiatry. Plan: - Continue Lexapro 20 mg daily and propranolol. - Continue Xanax 1 mg TID as needed for 2 weeks. - Can decrease Xanax to 0.5 mg dosage for when patient feels the least anxious (morning, noon, vs evening). ? Encouraged to follow up with psychiatry. ? Follow-up in two weeks. (2) Substance abuse: Status: Acute Assessment & Plan: Concern for addiction to Xanax, patient showing signs of withdrawal. Plan: ? Counseled patient on Xanax use, explained risks of dependence and side effects, patient aware, attempting to reduce dose. ? Encouraged patient to work on reducing use of Xanax. ? Encouraged to follow up with psychiatry referral. Plan Plan of care discussed with attending Dr. Stiles. Raimundo Jay DO, PGY-1 Office Procedures [facility] Level of Care Nursing/Assessment Patient Status: Established Patient Nursing Assessment/Reassessment: Medication Reconciliation, Update PMH in EMR and Vital Signs Coordination of Care: Complex Care and Chronic Disease 1-5, Consent,records obtained, informed consent, 1 Ins Authorization, Lab and Imaging orders and Results/Orders obtained Established Patient Charge Established Patient Point Assignment: 95 Established Patient Point Charge: Level 3 (80-115)
== END 2025-03-03 12:00 | disposition home or self-care (01) ==
LOC: HODAHC 11:36
PROVIDERS: PCP Nurse Practitioner Family; Referring Provider Nurse Practitioner Family; Supervising Provider Student in an Organized Health Care Education/Training Program; Visit Provider Student in an Organized Health Care Education/Training Program
DX: F41.1 Generalized anxiety disorder (principal); F13.139 Sedative, hypnotic or anxiolytic abuse with withdrawal, unspecified; Z76.0 Encounter for issue of repeat prescription
CPT/HCPCS: 99213; G0463

== ENCOUNTER 2025-03-16 11:35 | Emergency (ER) | payer MEDICAID, SELFPAY ==
[2025-03-16 12:04] VITALS: BP 154/96; PULSE 120; RESP 18; TEMP 37.1; O2SAT 97
--- NOTE | 2025-03-16 16:05 | EDNOTE_ITS ---
ED General RME/HPI General Chief complaint: General Adult/Misc Complain Stated complaint: NEEDS PRESCRIPTION REFILL, WITHDRAWLS Time Seen by Provider: 03/16/25 12:17 Arrival date/time: 03/16/25 11:35 Limitations: no limitations RME / HPI RME / HPI narrative: This is a 20 year old male with complaints of running out of his Xanax 2days ago. Patient states that he has a prescription that was filled two weeks ago to take Xanax 3 times a day. Patient states that he was taking 4 Xanax a day. States afraid of getting tapered off. However scared to start seizing. States that happened to his gilberto. Patient reports that he gets a new prescription on 03/17/24 but does not think he will be alright ast unsure if his pcp is open. Patient requesting a dose of Xanax today . States on 1mg tid. no si./hi./ah./vh Related Data Previous Rx's ?Medication ?Instructions ?Recorded metoclopramide HCl 10 mg tablet 10 mg PO Q6H PRN nause a and 09/02/24 (Reglan) vomiting #30 tabs famotidine 20 mg tablet (Pepcid) 20 mg PO QDAY PRN ref lux #14 tabs 11/08/24 tamsulosin 0.4 mg capsule (Flomax) 0.4 mg PO QDAY #10 caps 11/08/24 escitalopram oxalate 20 mg tablet 20 mg PO QDAY #30 ta bs 02/17/25 (Lexapro) propranolol 10 mg tablet 10 mg PO BID #60 tabs alprazolam 1 mg tablet 1 mg PO TID PRN anxiety #50 tabs 03/03/25 Allergies Allergy/AdvReac Type Severity Reaction Status Date / Time No Known Allergies Allergy Verified 03/16/25 11:37 Review of Systems Review of Systems Systems Reviewed: All systems reviewed, normal except as documented Constitutional Constitutional: Denies fever(s) Neurologic Neurologic: Reports as per HPI Psychiatric Psychiatric: Reports as per HPI ED Exam General Limitations: Present no limitations General appearance: Present alert and in no apparent distress Head Head exam: Present atraumatic Eye Eye exam: Present normal appearance, PERRL and EOMI ENT ENT exam: Present normal exam, normal oropharynx and mucous membranes moist Neck Neck exam: Present normal inspection, full ROM and trachea midline Chest Chest inspection: Present normal inspection and symmetric chest wall rise Respiratory Respiratory exam: Present normal lung sounds bilaterally Cardiovascular Cardiovascular exam: Present regular rate, normal rhythm and normal heart sounds Abdominal Exam Abdominal exam: Present soft and normal bowel sounds Extremities Exam Extremities exam: Present normal inspection and full ROM Back Exam Back exam: Present normal inspection and full ROM Neurological Exam Neurological exam: Present alert, oriented X3 and CN II-XII intact Psychiatric Psychiatric exam: Present normal affect and normal mood Skin Skin exam: Present warm, dry, intact and normal color Course Quality Measures none Orders Category Date Time Status ALPRazoLAM [Xanax] Med 03/16/25 12:17 Discontinued 1 mg PO X1 ONE Vital Signs Vital signs: Vital Signs Temperature 98.7 F 03/16/25 12:04 Pulse Rate 120 H 03/16/25 12:04 Respiratory Rate 18 03/16/25 12:04 Blood Pressure 154/96 H 03/16/25 12:04 Pulse Oximetry (%) 97 03/16/25 12:04 Oxygen Delivery Method Room Air 03/16/25 12:04 Discharge Plan Plan Patient Disposition: HOME (Self Care) Discharge Disposition comment: Follow-up with PCP in 2 to 3 days Prescriptions/Referrals Prescriptions/Med Rec: No Action propranolol 10 mg tablet 10 mg PO BID Qty: 60 1RF escitalopram oxalate [Lexapro] 20 mg tablet 20 mg PO QDAY Qty: 30 2RF alprazolam 1 mg tablet 1 mg PO TID PRN (Reason: anxiety) Qty: 50 0RF tamsulosin [Flomax] 0.4 mg capsule 0.4 mg PO QDAY Qty: 10 0RF famotidine [Pepcid] 20 mg tablet 20 mg PO QDAY PRN (Reason: reflux) Qty: 14 0RF metoclopramide HCl [Reglan] 10 mg tablet 10 mg PO Q6H PRN (Reason: nausea and vomiting) Qty: 30 0RF Problem List Clinical Impression: Generalized anxiety disorder, Benzodiazepine dependence, Benzodiazepine withdrawal Patient/Caregiver Discharge Instructions Education Materials: ED Benzodiazepine Withdrawal Print Language: Chinese Stand Alone Forms: Enriqueta Award Info., Patient Portal Info Letter PA/[employer] Supervising Physician PA/[employer] Supervising Physician: Dr. jackelin HELLER Clinical Information Provided by patient Medical Records Reviewed [facility] Meds/Rx Considered, not Ordered Describe details: Considered prescription for Xanax to avoid continued use to the ED however this is an breach of his contract Labs/Rad/Tests considered, not Ordered Describe details: No testing or imaging is warranted today Chronic Illness/Social Conditions which may negatively complicate care or outcome(s)-explain: other (Patient can go into withdrawal from lack of benzos) Add or document further as needed: History of anxiety on benzo Lab Interpretation Lab(s) interpretation(s): No labs to interpret Imaging Provider imaging interpretation(s): No imaging to interpret Medication Administration(s) Medication Administration History Discontinued Medications Alprazolam (Alprazolam 0.25 Mg Tablet) 1 mg PO X1 ONE Stop: 03/16/25 12:18 Last Admin: 03/16/25 12:23 Dose: 1 mg Documented By: LV
== END 2025-03-16 12:33 | disposition home or self-care (01) ==
LOC: SERX 12:31
PROVIDERS: Emergency Provider Physician Assistant
DX: Z76.0 Encounter for issue of repeat prescription (principal); F13.239 Sedative, hypnotic or anxiolytic dependence with withdrawal, unspecified; F41.1 Generalized anxiety disorder
CPT/HCPCS: 99281; A9270

== ENCOUNTER 2025-03-18 08:29 | Outpatient (AMB) | payer MEDICAID, SELFPAY ==
--- NOTE | 2025-03-18 08:39 | ACNOTE_ITS ---
Vital Signs 03/18/25 08:40 Height 1.83 m Height Method Stated Weight 82.1 kg Weight Measurement Method Standing Scale BMI 24.5 BP 151/101 H Blood Pressure Source Automatic Cuff Blood Pressure Location Right Upper Arm Position Sitting Respiration 19 Pulse 64 Pulse Source Monitor Temp 97.4 F Temp Source Oral Pulse Oximetry (%) 99 Oxygen Delivery Method Room Air Allergies/Meds Allergies & Medications Allergies No Known Allergies Allergy (Verified 03/18/25 08:40) Medication Reconciliation escitalopram oxalate 20 mg tablet (Lexapro) 20 mg PO QDAY #30 tabs 02/17/25 [Rx Confirmed 03/18/25] propranolol 10 mg tablet 10 mg PO BID #60 tabs 02/17/25 [Rx Confirmed 03/18/25] alprazolam 1 mg tablet 1 mg PO TID PRN anxiety 30 days #90 tabs 03/18/25 [Rx] nicotine (polacrilex) 4 mg gum 4 mg buccal Q2H #100 ea 03/18/25 [Rx] ibuprofen 800 mg tablet 800 mg PO Q8H PRN pain #30 tabs 03/20/25 [Rx] MA Intake Visit Data Collection New Patient or Established: Established Patient (seen at [facility] within 3 years) Seen by Clinical Staff ONLY (RN/MA): No Pain Present Currently: Yes Pain Location: Unable to identify (Left side pain) Pain scale:: 4 Pain Scale Used: Peguero-Medellin/Numerical PCP or OBGYN visit in last 3 months: Yes Smoking Status Smoking Status: Current every day smoker Cessation Counseling Provided: GRIS was advised that quitting smoking is the single most important factor to protect the health of themselves and their family. Discussed the benefits of quitting smoking with patient. Encouraged patient to quit smoking and provided Cessation assistance materials and resources. Tobacco Use: Cigarette Years smoked: 20 Are you interested in quitting?: Yes Would you like additional Smoking Cessation Counseling?: Yes Immunization / Flu Flu Vaccine in the Last 12 Months: No Flu Vaccine Exclusion Criteria: No Exclusion Criteria Past Medical History Past Medical History CARDIAC: Negative Congestive Heart Failure RESPIRATORY: Negative Chronic Obstructive Pulmonary Disease (COPD) GENITOURINARY: Negative Renal Disease ENDOCRINE: Negative Diabetes Mellitus Type 1 or Diabetes Mellitus Type 2 PSYCHO/SOCIAL: Positive Recreational Drug Use and Anxiety Social History SMOKING STATUS: Smoking status: Current every day smoker ALCOHOL: Alcohol Intake: Never Patient Portal Questionaires PHQ-9 PHQ-2 Over the last 2 weeks, how often have you been bothered by any of the following problems? 1. Little interest or pleasure in doing things: not at all PHQ-9 8. Moving or speaking so slowly that other people could have noticed? - Or the opposite - being so fidgety or restless that you have been moving around a lot more than usual: nearly every day Source: Developed by Drs. Guzman Blankenship, Rebekah Bueno, Tyrone Tracy and colleagues, with an educational blanche from [employer]. Social History Living Situation History Lives With: Family Tobacco History Smoking Status: Current every day smoker Alcohol History Alcohol Intake: Never Review of Systems Report any current symptoms Only answer those that you have currently: Past Medical History Past Medical History Have you ever been diagnosed with any of the following: Cardiology Problems Congestive Heart Failure: No Respiratory Problems Chronic Obstructive Pulmonary Disease (COPD): No Genital/Urinary Problems Renal Disease: No Endocrine Problems Diabetes Mellitus Type 1: No Diabetes Mellitus Type 2: No Psychologic Problems Recreational Drug Use: Yes Anxiety: Yes History of Present Illness HPI Narrative Gris Bustamante is a 20-year-old male with a past medical history of generalized anxiety disorder, panic attacks, and history of substance use (cocaine, alcohol, THC, benzodiazepines) who presents to the [facility] for benzodiazepine medication refill. Patient is usually seen on Monday mornings at [facility], was unable to be seen yesterday as [facility] was closed. Patient reports that he has severe anxiety and panic attacks and follows [facility] for bi-weekly prescription of alprazolam, reports that he had a few pills left from his last prescription but they were lost, he is requesting refills. Discussed with patient regarding addiction potential of alprazolam, verbalizes understanding reports that he is trying to minimize his pill use and is taking only 2 pills a day. Reports taking Lexapro and propranolol daily as well. Discussed with patient about transitioning to gabapentin as patient also has history of polysubstance use, reports that he would like to follow-up with his primary physician on Monday and discuss with him. Patient reports daily cigarette smoking, is interested in quitting, smoking cessation education provided, will prescribe nicotine gum. Review of Systems Review of Systems Systems Reviewed: All systems reviewed, normal except as documented Objective/Exam Narrative Physical exam: Physical Exam General: Awake and in no acute distress. Conversational and non-toxic appearing. HEENT: Normocephalic, atraumatic, mucous membranes moist. Heart: Regular rate and rhythm, no murmurs. Lungs: Clear to auscultation with no wheezing or crackles. Abdomen: Soft, nondistended, nontender, positive bowel sounds. ?No guarding or rebound tenderness. Neurologic: Alert and oriented x3, no gross neurological deficit, and patient able to move all 4 extremities. Extremities: No edema. Skin: No rash or ecchymoses. Assessment & Plan Diagnosis / Problem List (1) Generalized anxiety disorder: Status: Acute Assessment & Plan: Patient reported he continues to take Xanax but the dose 0.5 mg was not sufficient for him so he had to take more then 3 tabs a day. He continues to take Lexapro and propranolol. He is followed by psychiatry. Plan: - Continue Lexapro 20 mg daily and propranolol. - Continue Xanax 1 mg TID as needed for 4 weeks. Prescribed additional 2 weeks due to pending scheduling changes. - Can decrease Xanax to 0.5 mg dosage for when patient feels the least anxious (morning, noon, vs evening). ? Encouraged to follow up with psychiatry. ? Follow-up in two weeks. (2) Substance abuse: Status: Acute Assessment & Plan: Concern for addiction to Xanax, patient showing signs of withdrawal. Plan: ? Counseled patient on Xanax use, explained risks of dependence and side effects, patient aware, attempting to reduce dose. ? Encouraged patient to work on reducing use of Xanax. ? Encouraged to follow up with psychiatry referral. ? Discuss with PCP for possibly initiating gabapentin to assist with withdrawal and manage anxiety symptoms Plan Case discussed with Attending Physician Dr. Stiles. Mikayla Bryant MD Internal Medicine PGY-2 Disclaimer: This note was dictated by speech recognition. Minor errors in medicaid analyst may be present due to voice recognition software. Additional Assessment Attending note: I, Sumanth Stiles MD, attest that I was physically present for the sims portions of the service completed via telehealth, and I reviewed and discussed the case with the resident and agree with the resident's plans of care as documented above. Sumanth Stiles MD Physician Billing Established Patient Established Patient: E/M Level 3-CPT 92589 Office Procedures [facility] Level of Care Nursing/Assessment Patient Status: Established Patient Nursing Assessment/Reassessment: Medication Reconciliation, Update PMH in EMR and Vital Signs Coordination of Care: Complex Care and Chronic Disease 1-5, Education Complex Pt/Fam, Education Simp Pt/Fam and Staff clarify orders Established Patient Charge Established Patient Point Assignment: 100 Established Patient Point Charge: Level 3 (80-115)
[2025-03-18 08:40] VITALS: BP 151/101; PULSE 64; RESP 19; TEMP 36.3; O2SAT 99; BMI 24.5
== END 2025-03-18 10:06 | disposition home or self-care (01) ==
PROVIDERS: PCP Student in an Organized Health Care Education/Training Program; Referring Provider Student in an Organized Health Care Education/Training Program; Supervising Provider Internal Medicine; Visit Provider Student in an Organized Health Care Education/Training Program
DX: Z76.0 Encounter for issue of repeat prescription (principal); F41.1 Generalized anxiety disorder
CPT/HCPCS: 99213; G0463

== ENCOUNTER 2025-03-31 04:40 | Emergency (ER) | payer MEDICAID, SELFPAY ==
[2025-03-31 04:41] VITALS: BMI 20.3
[2025-03-31 05:14] VITALS: BP 160/113; BP 174/106; PULSE 136; RESP 20; TEMP 36.5; O2SAT 98
--- NOTE | 2025-03-31 05:16 | EDNOTE_ITS ---
ED Anxiety RME/HPI General Chief Complaint: Anxiety Stated Complaint: ANXIETY Time Seen by Provider: 03/31/25 05:15 Arrival date/time: 03/31/25 04:40 This is a case of 20-year-old male with history of anxiety came in in the emergency room due to anxiety attack today patient states that he needs medication refill of his Xanax 1 mg patient denies any suicidal or homicidal ideation denies any hallucination Limitations: no limitations Related Data Previous Rx's ?Medication ?Instructions ?Recorded escitalopram oxalate 20 mg tablet 20 mg PO QDAY #30 ta bs 02/17/25 (Lexapro) propranolol 10 mg tablet 10 mg PO BID #60 tabs alprazolam 1 mg tablet 1 mg PO TID PRN anxiety 30 d ays 03/18/25 #90 tabs nicotine (polacrilex) 4 mg gum 4 mg buccal Q2H #100 ea 03/18/25 ibuprofen 800 mg tablet 800 mg PO Q8H PRN pain #30 t abs 03/20/25 alprazolam 1 mg tablet 1 mg PO BID PRN anxiety #5 t abs 03/31/25 Allergies Allergy/AdvReac Type Severity Reaction Status Date / Time No Known Allergies Allergy Verified 03/31/25 04:51 Review of Systems Review of Systems Systems Reviewed: All systems reviewed, normal except as documented Constitutional Constitutional: Reports system reviewed and no additional complaints, except as documented and Reports as per HPI Cardiovascular Cardiovascular: Reports system reviewed and no additional complaints, except as documented and Reports as per HPI Respiratory Respiratory: Reports system reviewed and no additional complaints, except as documented and Reports as per HPI Gastrointestinal Gastrointestinal: Reports system reviewed and no additional complaints, except as documented and Reports as per HPI Genitourinary Genitourinary: Denies change in libido Musculoskeletal Musculoskeletal: Reports system reviewed and no additional complaints, except as documented and Reports as per HPI Neurologic Neurologic: Reports system reviewed and no additional complaints, except as documented, Reports as per HPI, Denies behavioral changes, Denies confusion and Denies memory loss Psychiatric Psychiatric: Reports as per HPI, Denies abnormal sleep pattern, Denies anhedonia, Reports anxiety, Denies auditory hallucinations, Denies behavioral changes, Denies change in appetite, Denies change in libido, Denies confusion, Denies depression, Denies difficulty concentrating, Denies hallucinations, Denies homicidal ideation, Denies hopelessness, Denies irritability, Denies memory loss, Denies mood swings, Denies panic attacks, Denies paranoia, Denies suicidal ideation, Denies tactile hallucinations and Denies visual hallucinations Endocrine Endocrine: Denies change in libido Past Medical History Past Medical History CARDIAC: Negative Congestive Heart Failure RESPIRATORY: Negative Chronic Obstructive Pulmonary Disease (COPD) GENITOURINARY: Negative Renal Disease ENDOCRINE: Negative Diabetes Mellitus Type 1 or Diabetes Mellitus Type 2 PSYCHO/SOCIAL: Positive Recreational Drug Use and Anxiety Social History SMOKING STATUS: Current every day smoker SUBSTANCE USE: marijuana and hallucinogens ED Exam General Limitations: Present no limitations General appearance: Present alert, in no apparent distress and other (Awake alert oriented not in distress nontoxic looking well-hydrated well-nourished) Head Head exam: Present atraumatic, normocephalic and normal inspection Eye Eye exam: Present normal appearance, PERRL and EOMI ENT ENT exam: Present normal exam, normal oropharynx and mucous membranes moist Neck Neck exam: Present normal inspection, full ROM and trachea midline; Absent tenderness, meningismus, lymphadenopathy or thyromegaly Chest Chest inspection: Present normal inspection and symmetric chest wall rise; Absent tenderness Respiratory Respiratory exam: Present normal lung sounds bilaterally; Absent respiratory distress, wheezes, stridor, accessory muscle use or prolonged expiratory phase Cardiovascular Cardiovascular exam: Present regular rate, normal rhythm and normal heart sounds; Absent bradycardia, tachycardia, systolic murmur or diastolic murmur Abdominal Exam Abdominal exam: Present soft and normal bowel sounds Extremities Exam Extremities exam: Present normal inspection and full ROM Back Exam Back exam: Present normal inspection and full ROM Neurological Exam Neurological exam: Present alert, oriented X3, CN II-XII intact, normal gait and reflexes normal; Absent motor sensory deficit Psychiatric Psychiatric exam: Present normal affect, normal mood and anxious; Absent depressed, agitated, flat affect, manic, homicidal ideation or suicidal ideation Skin Skin exam: Present warm, dry, intact and normal color Course Quality Measures none Orders Category Date Time Status LORazepam [Ativan] Med 03/31/25 05:16 Once 1 mg PO X1 ONE Vital Signs Vital signs: Vital Signs Temperature 97.7 F 03/31/25 05:14 Pulse Rate 136 H 03/31/25 05:14 Respiratory Rate 20 03/31/25 05:14 Blood Pressure 174/106 H 03/31/25 05:14 Pulse Oximetry (%) 98 03/31/25 05:14 Oxygen Delivery Method Room Air 03/31/25 05:14 oxygen saturation is 98% in room air BP was rechecked after taking Ativan and noted to be 135/75 Anxiety MDM Narrative MDM Narrative: This is a case of 20-year-old male with history of anxiety came in in the emergency room due to anxiety attack today patient states that he needs medication refill of his Xanax 1 mg patient denies any suicidal or homicidal ideation denies any hallucination physical examination patient is awake alert oriented not in distress nontoxic looking well-hydrated well-nourished patient noted to be anxious but not depressed no signs and symptoms of suicidal nor homicidal ideation no paranoia no hallucination the rest of the physical examination neurological exam is normal and unremarkable after giving Ativan patient condition markedly improved patient medication refill of her alprazolam was given patient was advised to follow-up with PCP to be referred to psychiatry psychologist for any recurrence persistent worsening symptoms or any emergent concern return to the emergency room immediately or call 911 Patient was discharged with comfortable condition walking with stable gait. Patient verbalized no further complains explained diagnosis and answered patient question. Patient is comfortable with the proposed management plan including the need to follow up with his/her primary care physician and any specialist if applicable Discussed patient for any urgent condition or worsening sx, He/She needed to go to emergency room immediately or call 911. Patient acknowledge the responsibility to follow up as instructed and to monitor her/his symptoms. For any persistence of the symptoms for more than 3-5 days return precaution advised. Discussed the result of the test and was given printed discharge instruction Patient data External records reviewed:: [facility] previous records Clinical information provided by:: patient Social determinants that could affect healthcare access:: none Patient has the following chronic illnesses:: None How is presenting disease/condition affected by chronic disease/condition?: no chronic disease Evaluation data The following diagnostics were reviewed and interpreted by me:: other (specify) (None) Lab and/or radiology exams considered but not ordered:: None Interpretation Summary: None Medications / Prescriptions Medications or Prescriptions considered but not ordered:: Given Medication administrations:: Medication Administration History Lorazepam (Lorazepam 0.5 Mg Tablet) 1 mg PO X1 ONE Stop: 03/31/25 05:17 Consultations Consultation(s) initiated? (list below): No Diagnosis Differential diagnosis anxiety: panic disorder and acute anxiety Most likely diagnosis given after review of the tests above:: Anxiety Admission Indicated Admission indicated?: not indicated Explain why admission is indicated or not indicated:: Anxiety Admission Request Was there a request for admission?: No Admission Attestation Admission request attestation: Anxiety Disposition Plan Disposition Plan: Discharge Discharge Attestation Discharge Attestation: The patient and all family members were given an opportunity to ask questions and understood the discharge instructions. Discharge instructions specifically effects, indications for sooner follow up or return to the emergency department, and the expected course of current diagnosis. Patient condition: Stable Discharge Plan Plan Patient Disposition: HOME (Self Care) Patient condition on transfer: Stable Prescriptions/Referrals Prescriptions/Med Rec: New alprazolam 1 mg tablet 1 mg PO BID PRN (Reason: anxiety) Qty: 5 0RF No Action propranolol 10 mg tablet 10 mg PO BID Qty: 60 1RF escitalopram oxalate [Lexapro] 20 mg tablet 20 mg PO QDAY Qty: 30 2RF nicotine (polacrilex) 4 mg gum 4 mg buccal Q2H Qty: 100 0RF alprazolam 1 mg tablet 1 mg PO TID PRN (Reason: anxiety) 30 Days Qty: 90 1RF ibuprofen 800 mg tablet 800 mg PO Q8H PRN (Reason: pain) Qty: 30 0RF Problem List Clinical Impression: Anxiety, Medication refill Patient/Caregiver Discharge Instructions Education Materials: ED Anxiety Reaction Additional Instructions: Follow-up with your primary care physician in 2 days for reevaluation and to be referred to psychiatry psychologist for anxiety recurrence persistent worsening symptoms or any emergent concern call 911 or go to the nearest emergency room Print Language: Divehi Stand Alone Forms: Enriqueta Award Info., Patient Portal Info Letter PA/MERCHANDISE FLOW MANAGER Supervising Physician PA/MERCHANDISE FLOW MANAGER Supervising Physician: Dr. Ricky Sanchez
[2025-03-31 05:49] VITALS: BP 162/91; PULSE 123; RESP 18; O2SAT 99
== END 2025-03-31 06:19 | disposition home or self-care (01) ==
LOC: SERX 06:02
PROVIDERS: Emergency Provider Emergency Medicine; PCP Family Medicine
DX: Z76.0 Encounter for issue of repeat prescription (principal); F41.9 Anxiety disorder, unspecified
CPT/HCPCS: 99281; A9270

== ENCOUNTER 2025-04-14 05:23 | Emergency (ER) | payer MEDICAID, SELFPAY ==
[2025-04-14 05:24] VITALS: BMI 24.4
[2025-04-14 06:20] VITALS: BP 168/80; PULSE 95; RESP 16; TEMP 36.8; O2SAT 100
--- NOTE | 2025-04-14 06:32 | PD.EDRECHK ---
ED Recheck Abnl Lab Rx-RME/HPI General Chief Complaint: Recheck/Abnormal Lab/Rx Stated Complaint: RAN OUT OF ANXIETY MEDICATION Time Seen by Provider: 04/14/25 06:18 Source: patient Arrival date/time: 04/14/25 05:23 20-year-old male with a history of anxiety presents to the emergency room with a chief complaint of running out with anxiety medication. Mode of arrival: ambulatory Limitations: no limitations Related Data Previous Rx's ?Medication ?Instructions ?Recorded escitalopram oxalate 20 mg tablet 20 mg PO QDAY #30 tabs 02/17/25 (Lexapro) propranolol 10 mg tablet 10 mg PO BID #60 tabs 02/17/25 alprazolam 1 mg tablet 1 mg PO TID PRN anxiety 30 days 03/18/25 #90 tabs nicotine (polacrilex) 4 mg gum 4 mg buccal Q2H #100 ea 03/18/25 ibuprofen 800 mg tablet 800 mg PO Q8H PRN pain #30 tabs 03/20/25 alprazolam 1 mg tablet 1 mg PO BID PRN anxiety #5 tabs 03/31/25 Allergies Allergy/AdvReac Type Severity Reaction Status Date / Time No Known Allergies Allergy Verified 03/31/25 04:51 Review of Systems Review of Systems Systems Reviewed: All systems reviewed, normal except as documented Constitutional Constitutional: Reports system reviewed and no additional complaints, except as documented, Denies fatigue, Denies fever(s), Denies headache(s) and Denies weakness Eyes Eyes: Reports system reviewed and no additional complaints, except as documented, Denies blurry vision and Denies change in vision ENT Ears, Nose, Mouth, and Throat: Reports system reviewed and no additional complaints, except as documented, Denies otalgia, Denies headache(s), Denies nasal congestion, Denies throat swelling and Denies vertigo Cardiovascular Cardiovascular: Reports system reviewed and no additional complaints, except as documented, Denies chest pain, Denies dyspnea and Denies dyspnea on exertion Respiratory Respiratory: Reports system reviewed and no additional complaints, except as documented, Denies chest congestion, Denies cough, Denies dyspnea, Denies dyspnea on exertion and Denies wheezing Gastrointestinal Gastrointestinal: Reports system reviewed and no additional complaints, except as documented, Denies abdominal pain, Denies cramping, Denies nausea and Denies vomiting Genitourinary Genitourinary: Reports system reviewed and no additional complaints, except as documented, Denies dysuria and Denies hematuria Musculoskeletal Musculoskeletal: Reports system reviewed and no additional complaints, except as documented and Denies back pain Integumentary/Breasts Skin/Breast: Reports system reviewed and no additional complaints, except as documented and Denies wounds Neurologic Neurologic: Reports system reviewed and no additional complaints, except as documented, Denies confusion, Denies headache(s), Denies lack of coordination, Denies vertigo and Denies weakness Psychiatric Psychiatric: Reports system reviewed and no additional complaints, except as documented, Denies anxiety, Denies confusion, Denies depression, Denies paranoia, Denies suicidal ideation and Denies tactile hallucinations Endocrine Endocrine: Reports system reviewed and no additional complaints, except as documented and Denies fatigue Hematologic/Lymphatic Hematologic/Lymphatic: Reports system reviewed and no additional complaints, except as documented and Denies lymphadenopathy Allergic/Immunologic Allergic/Immunologic: Reports system reviewed and no additional complaints, except as documented, Denies throat swelling, Denies urticaria and Denies wheezing Past Medical History Past Medical History CARDIAC: Negative Congestive Heart Failure RESPIRATORY: Negative Chronic Obstructive Pulmonary Disease (COPD) GENITOURINARY: Negative Renal Disease ENDOCRINE: Negative Diabetes Mellitus Type 1 or Diabetes Mellitus Type 2 PSYCHO/SOCIAL: Positive Recreational Drug Use and Anxiety Social History SMOKING STATUS: Current every day smoker SUBSTANCE USE: marijuana and hallucinogens ED Exam General Limitations: Present no limitations General appearance: Present alert and in no apparent distress Head Head exam: Present atraumatic Eye Eye exam: Present normal appearance, PERRL and EOMI ENT ENT exam: Present normal exam, normal oropharynx and mucous membranes moist Neck Neck exam: Present normal inspection, full ROM and trachea midline Chest Chest inspection: Present normal inspection and symmetric chest wall rise Respiratory Respiratory exam: Present normal lung sounds bilaterally; Absent respiratory distress, wheezes, stridor, accessory muscle use or prolonged expiratory phase Cardiovascular Cardiovascular exam: Present regular rate, normal rhythm, normal heart sounds, +S1 and +S2; Absent bradycardia, tachycardia or irregular rhythm Abdominal Exam Abdominal exam: Present soft and normal bowel sounds Extremities Exam Extremities exam: Present normal inspection and full ROM Back Exam Back exam: Present normal inspection and full ROM Neurological Exam Neurological exam: Present alert, oriented X3 and CN II-XII intact Psychiatric Psychiatric exam: Present normal affect and normal mood Skin Skin exam: Present warm, dry, intact and normal color Course Quality Measures none Orders Category Date Time Status ALPRazoLAM [Xanax] Med 04/14/25 06:20 Discontinued 1 mg PO X1 ONE Vital Signs Vital signs: Vital Signs Temperature 98.2 F 04/14/25 06:20 Pulse Rate 95 04/14/25 06:20 Respiratory Rate 16 04/14/25 06:20 Blood Pressure 168/80 H 04/14/25 06:20 Pulse Oximetry (%) 100 04/14/25 06:20 Oxygen Delivery Method Room Air 04/14/25 06:20 Recheck / Abnormal Lab / Rx MDM Narrative MDM Narrative:: 20-year-old male with a history of anxiety presents to the emergency room with a chief complaint of running out with anxiety medication. Patient is hemodynamically stable and in no apparent distress. Patient states he has a medication refill tomorrow. 1 dose of his anxiety medication was given to him today Patient denies any chest pain palpitations difficulty breathing or any other signs and symptoms. Patient just states he is having some breakthrough anxiety. Medication was given with improvement to his symptoms and the patient was discharged Patient was discharged and educated to follow-up with primary care provider in the next 24 to 48 hours and return to the emergency room for any evidence of worsening signs or symptoms Patient data External records reviewed:: [facility] previous records Clinical information provided by:: patient Social determinants that could affect healthcare access:: none Patient has the following chronic illnesses:: Anxiety How is presenting disease/condition affected by chronic disease/condition?: exacerbated by Evaluation data The following diagnostics were reviewed and interpreted by me:: lab results and radiology exam(s) Lab and/or radiology exams considered but not ordered:: Labs and radiology exams considered and ordered Interpretation Summary: N/A Medications / Prescriptions Medications or Prescriptions considered but not ordered:: Medication given Medication administrations:: Medication Administration History Discontinued Medications Alprazolam (Alprazolam 0.25 Mg Tablet) 1 mg PO X1 ONE Stop: 04/14/25 06:21 Medication given prior Consultations Consultation(s) initiated? (list below): No Diagnosis Recheck Differential Diagnosis: encounter for medication refill and other (Anxiety) Most likely diagnosis given after review of the tests above:: Anxiety Admission Indicated Admission indicated?: not indicated Admission Request Was there a request for admission?: No Disposition Plan Disposition Plan: Discharge Discharge Attestation Discharge Attestation: The patient and all family members were given an opportunity to ask questions and understood the discharge instructions. Discharge instructions specifically effects, indications for sooner follow up or return to the emergency department, and the expected course of current diagnosis. Patient condition: Stable Discharge Plan Plan Patient Disposition: HOME (Self Care) Discharge Disposition comment: Stable Prescriptions/Referrals Prescriptions/Med Rec: No Action propranolol 10 mg tablet 10 mg PO BID Qty: 60 1RF escitalopram oxalate [Lexapro] 20 mg tablet 20 mg PO QDAY Qty: 30 2RF nicotine (polacrilex) 4 mg gum 4 mg buccal Q2H Qty: 100 0RF alprazolam 1 mg tablet 1 mg PO TID PRN (Reason: anxiety) 30 Days Qty: 90 1RF alprazolam 1 mg tablet 1 mg PO BID PRN (Reason: anxiety) Qty: 5 0RF ibuprofen 800 mg tablet 800 mg PO Q8H PRN (Reason: pain) Qty: 30 0RF Referrals: No Primary/Family,Physician [Primary Care Provider] - In 1 week Problem List Clinical Impression: Anxiety Patient/Caregiver Discharge Instructions Education Materials: ED Anxiety Reaction Additional Instructions: Please follow-up with your primary care provider in the next 24 to 48 hours For any evidence of worsening signs or symptoms return to emergency room immediately Print Language: Dominican Stand Alone Forms: Enriqueta Award Info., Work/School Release, Patient Portal Info Letter SHRUTI/EDE Supervising Physician SHRUTI/EDE Supervising Physician: Dr. Oconnor
== END 2025-04-14 06:54 | disposition home or self-care (01) ==
PROVIDERS: Emergency Provider Emergency Medicine
DX: F41.9 Anxiety disorder, unspecified (principal)
CPT/HCPCS: 99282; A9270

== ENCOUNTER 2025-04-23 13:05 | Outpatient (AMB) | payer MEDICAID, SELFPAY ==
--- NOTE | 2025-04-23 13:25 | PD.RESCLINIC ---
Vital Signs 04/23/25 13:26 Height 1.83 m Height Method Stated Weight 86.863 kg Weight Measurement Method Standing Scale BMI 25.9 BP 116/75 Blood Pressure Source Automatic Cuff Blood Pressure Location Right Upper Arm Position Sitting Respiration 58 H Pulse 17 L Pulse Source Monitor Temp 97.9 F Temp Source Temporal Artery Scan Pulse Oximetry (%) 98 Oxygen Delivery Method Room Air Allergies/Meds Allergies & Medications Allergies No Known Allergies Allergy (Verified 04/23/25 13:27) Medication Reconciliation escitalopram oxalate 20 mg tablet (Lexapro) 20 mg PO QDAY #30 tabs 02/17/25 [Rx Confirmed 04/23/25] propranolol 10 mg tablet 10 mg PO BID #60 tabs 02/17/25 [Rx Confirmed 04/23/25] ibuprofen 800 mg tablet 800 mg PO Q8H PRN pain #30 tabs 03/20/25 [Rx Confirmed 04/23/25] alprazolam 1 mg tablet 1 mg PO BID PRN anxiety #5 tabs 03/31/25 [Rx Confirmed 04/23/25] gabapentin 100 mg capsule 100 mg PO BID 30 days #60 caps 04/23/25 [Rx] MA Intake Visit Data Collection New Patient or Established: Established Patient (seen at [facility] within 3 years) Seen by Clinical Staff ONLY (RN/MA): No Pain Present Currently: No PCP or OBGYN visit in last 3 months: No Smoking Status Smoking Status: Current every day smoker Cessation Counseling Provided: GRIS was advised that quitting smoking is the single most important factor to protect the health of themselves and their family. Discussed the benefits of quitting smoking with patient. Encouraged patient to quit smoking and provided Cessation assistance materials and resources. Tobacco Use: Vapor Cigarette Years smoked: 2 Are you interested in quitting?: Yes Would you like additional Smoking Cessation Counseling?: No Immunization / Flu Flu Vaccine in the Last 12 Months: No Flu Vaccine Exclusion Criteria: No Exclusion Criteria Past Medical History Past Medical History CARDIAC: Negative Congestive Heart Failure RESPIRATORY: Negative Chronic Obstructive Pulmonary Disease (COPD) GENITOURINARY: Negative Renal Disease ENDOCRINE: Negative Diabetes Mellitus Type 1 or Diabetes Mellitus Type 2 PSYCHO/SOCIAL: Positive Recreational Drug Use and Anxiety Social History SMOKING STATUS: Smoking status: Current every day smoker ALCOHOL: Alcohol Intake: Never Patient Portal Questionaires PHQ-9 PHQ-2 Over the last 2 weeks, how often have you been bothered by any of the following problems? 1. Little interest or pleasure in doing things: not at all PHQ-9 8. Moving or speaking so slowly that other people could have noticed? - Or the opposite - being so fidgety or restless that you have been moving around a lot more than usual: nearly every day Source: Developed by Drs. Guzman Blankenship, Rebekah Bueno, Tyrone Tracy and colleagues, with an educational blanche from [email or web address]. Social History Living Situation History Lives With: Family Tobacco History Smoking Status: Current every day smoker Alcohol History Alcohol Intake: Never Review of Systems Report any current symptoms Only answer those that you have currently: Past Medical History Past Medical History Have you ever been diagnosed with any of the following: Cardiology Problems Congestive Heart Failure: No Respiratory Problems Chronic Obstructive Pulmonary Disease (COPD): No Genital/Urinary Problems Renal Disease: No Endocrine Problems Diabetes Mellitus Type 1: No Diabetes Mellitus Type 2: No Psychologic Problems Recreational Drug Use: Yes Anxiety: Yes History of Present Illness HPI Narrative Gris Bustamante is a 20-year-old male with a past medical history of generalized anxiety disorder, panic attacks, and history of substance use (cocaine, alcohol, THC, benzodiazepines) who presents to the [facility] for benzodiazepine medication refill. Patient is usually seen on Monday mornings at [facility], was unable to be seen yesterday as [facility] was closed. Patient reports that he has severe anxiety and panic attacks and follows [facility] for bi-weekly prescription of alprazolam, reports that he had a few pills left from his last prescription but they were lost, he is requesting refills. Discussed with patient regarding addiction potential of alprazolam, verbalizes understanding reports that he is trying to minimize his pill use and is taking only 2 pills a day. Reports taking Lexapro and propranolol daily as well. Discussed with patient about transitioning to gabapentin as patient also has history of polysubstance use, reports that he would like to follow-up with his primary physician on Monday and discuss with him. Patient reports daily cigarette smoking, is interested in quitting, smoking cessation education provided, will prescribe nicotine gum. 04/23/25: Patient presents to clinic today for refill on alprazolam. Takes it for anxiety. States that he has seen psychiatrist in the past. But did not help much. Vitals are stable. Patient states that he feels dependent on the Xanax and experiences withdrawls such as headaches, one seizure, jaw clenching. Initially had started using the alprazolam from streets. Endorses mirjuana use, past hx of cocaine use (two years ago). Anxiety stems for a panic attack in the past. Leaxapro has not been helping but he may be non compliant, denies taking gabapentin. Patient was counseled of risks for worsening addiction or withdrawals. Agreed to see psychiatirst. Also plan to start gabapentin 100mg BID. Recommended taper dose and limit his next refill unless he follows with psychatirst. Review of Systems Review of Systems Systems Reviewed: All systems reviewed, normal except as documented Objective/Exam Narrative Physical exam: Physical Exam General: Awake and in no acute distress. Slow responses. Conversational and non-toxic appearing. HEENT: Normocephalic, atraumatic, mucous membranes moist. Heart: Regular rate and rhythm, no murmurs. Lungs: Clear to auscultation with no wheezing or crackles. Abdomen: Soft, nondistended, nontender, positive bowel sounds. ?No guarding or rebound tenderness. Neurologic: Alert and oriented x3, no gross neurological deficit, and patient able to move all 4 extremities. Extremities: No edema. Skin: No rash or ecchymoses. Assessment & Plan Diagnosis / Problem List (1) Substance abuse: Status: Acute (2) Anxiety: Status: Inactive Assessment & Plan: States that he has seen psychiatrist in the past. But did not help much. Vitals are stable. Patient states that he feels dependent on the Xanax and experiences withdrawls such as headaches, one seizure, jaw clenching. Initially had started using the alprazolam from streets. Endorses mirjuana use, past hx of cocaine use (two years ago). Anxiety stems for a panic attack in the past. Leaxapro has not been helping, denies taking gabapentin. Patient was cousndled of risks for worsening addication or withdrawls. Plan: -refill 45 tablets for taper dose -start gabapentin 100mg BID -establish care with psychiatrist -follow up in one month Office Procedures [facility] Level of Care Nursing/Assessment Patient Status: Established Patient Nursing Assessment/Reassessment: Medication Reconciliation, Update PMH in EMR and Vital Signs Coordination of Care: Complex Care and Chronic Disease 1-5, Education Complex Pt/Fam, Results/Orders obtained and Staff clarify orders Established Patient Charge Established Patient Point Assignment: 90 Established Patient Point Charge: EP Level 3 (80-115)
[2025-04-23 13:26] VITALS: BP 116/75; PULSE 17; RESP 58; TEMP 36.6; O2SAT 98; BMI 25.9
== END 2025-04-23 13:47 | disposition home or self-care (01) ==
LOC: HODAHC 13:05
PROVIDERS: PCP Student in an Organized Health Care Education/Training Program; Referring Provider Student in an Organized Health Care Education/Training Program; Supervising Provider Internal Medicine; Visit Provider Student in an Organized Health Care Education/Training Program
DX: F41.1 Generalized anxiety disorder (principal); F19.10 Other psychoactive substance abuse, uncomplicated; Z71.6 Tobacco abuse counseling; F17.210 Nicotine dependence, cigarettes, uncomplicated; Z76.0 Encounter for issue of repeat prescription
CPT/HCPCS: 99213; G0463